=== PATIENT | female | born 1950 | race Caucasian/White ===

== ENCOUNTER → 2017-02-05 | Day surgery (SDC) | payer MEDICARE, BC, OTHER ==
[~2017-02-05] VITALS: Ht 158.8 cm; Wt 76.2 kg
[~2017-02-05] MED LIST: ALBUTEROL SULFATE 2.5 MG/0.5 ML INH NEB SOLN As Ordered ONE; ALBUTEROL SULFATE 2.5 MG/0.5 ML INH NEB SOLN INH ONE; ASPI81TA85 PO; CARV25TA PO; CARVedilol 12.5 MG TAB PO ONE; CLON-412 PO; COMBAER6 INH; EPINEPHrine 1MG/10ML SYRINGE 1.5IN As Ordered ONE; GLYCOPYRROLATE INJ 0.2 MG/ML 2 ML VIAL As Ordered ONE; LABETALOL HCL 100 MG/20 ML VIAL As Ordered ONE; LEVO112T2 PO; LIDOCAINE 2% INJ 100 MG/5 ML SDV (FOR ANES.) As Ordered ONE; LIDOCAINE VISCOUS 2% SOLN 15ML UDC As Ordered ONE; LR 1,000 ML IV SCH; METOCLOPRAMIDE INJ 10MG/2ML VIAL (J2765) As Ordered ONE; METOCLOPRAMIDE INJ 10MG/2ML VIAL (J2765) IV ONE; MIDAZOLAM INJ 2 MG/2 ML VIAL (J2250) As Ordered ONE; NEOSTIGMINE 1MG/ML 5 ML SYRINGE (J2710) As Ordered ONE; ONDANSETRON 4MG/2ML VIAL (J2405) As Ordered ONE; ONDANSETRON 4MG/2ML VIAL (J2405) IV PRN; PERCOCET 5MG/325MG TAB PO PRN; PHENYLephrine HCL 500 MCG/5 ML (100MCG/ML) SYRINGE (J2370) As Ordered ONE; PLAV75TA38 PO; PROPOFOL 200 MG/20 ML VIAL As Ordered ONE; ROCURONIUM BROMIDE 50 MG/5 ML VIAL As Ordered ONE; SCOPOLAMINE 1.5 MG TRANSDERMAL TOP ONE; SIMV10TA2 PO; VALS1TAB47 PO; VALSARTAN 80 MG TAB (DIOVAN) PO ONE; VITA100066 PO; XALA0.002 OU; cloNIDine 0.1 MG TAB PO ONE; dexameTHASONE 4 MG/ML 1ML VIAL (J1100) As Ordered ONE; ePHEDrine SULFATE 25 MG/5 ML(5MG/ML) SYRINGE As Ordered ONE; fentaNYL 100 MCG/2 ML INJECTION (J3010) As Ordered ONE; fentaNYL 100 MCG/2 ML INJECTION (J3010) IV PRN
--- NOTE | 2017-02-05 11:50 | REP ---
CHEST, ONE VIEW:HISTORY: Postop. Patchy density is present in the right upper lobe consistent with atelectasis or infiltrate. A diffuse increase in interstitial markings is present in the lungs. The heart is normal in size. The pulmonary vasculature is normal in appearance. There is no pneumothorax. IMPRESSION: 1. Right upper lobe atelectasis or infiltrate. 2. There is a diffuse increase in interstitial markings in the lungs. This may represent chronic interstitial fibrosis. Signed by Solomon Rodriguez MD 02/05/2017 11:57 A
--- NOTE | 2017-02-05 11:59 | RO ---
DATE OF PROCEDURE: 02/05/2017 PREOPERATIVE DIAGNOSIS: Abnormal chest CT, right upper lobe lesion, mediastinal adenopathy. POSTOPERATIVE DIAGNOSIS: Abnormal chest CT, right upper lobe lesion, mediastinal adenopathy. FINDINGS: Findings of a narrowed right middle lobe and splayed kaylie. PROCEDURE: Bronchoscopy with electromagnetic navigation and endobronchial ultrasound. PROCEDURALIST: Mitch Noel DO FREELANCE DIRECTOR: General Estimated blood loss: 20-30 mL. FLUIDS: None replaced. COMPLICATIONS: No complications. DRAINS: No drains. DESCRIPTION OF PROCEDURE: After informed consent was reviewed with the patient in preoperative area, she was brought back to OR number six. A time out was performed with two patient identifiers identifying correct site and correct procedure. After the patient was intubated, the case was handed over to me. I performed electromagnetic navigation bronchoscopy. I started with anesthetizing the area with Cetacaine spray. A time out was again performed identifying two patient identifiers identifying correct site and correct procedure. Bronchoscope was then introduced into the endotracheal tube. The trachea was midline. Kaylie was splayed. Right and left mainstem bronchus was normal except for excessive amounts of mucus and some white plaquing of the airway, especially on the right. RB 1-3 was normal without endobronchial lesions. Right mainstem bronchus was normal. There was narrowing of the right middle lobe to the point where I could only see a small sliver. I could not pass through this opening to see the medial and lateral segments. RB 6-10 was normal without endobronchial lesions. The left mainstem bronchus was normal without abnormalities, less mucus secretions than on the right. She had an anatomic variation. There was a left upper lobe apical segment, left upper apical posterior segment that were together, and then there was a separate left anterior segment of the left upper lobe and a separate area of lingula. Both superior and inferior segments. Left lower lobe was normal without endobronchial lesions in all airways. 5-10 was normal. After adequate inspection, the bronchoscope was moved back to the endotracheal tube. Automatic registration was performed with confirmation. The LG guide was then used to navigate into the right upper lobe posterior segment. Placement proximity was assured based on CT, location and fluoroscopy. The guide was 9 mm in front of the lesion. The LG guide was removed. FNA was obtained with Gen[employer]. I then performed transbronchial biopsies times eight. After this was performed a bronchial brush was used for cytology. I then replaced the LG guide, repositioned the guide to the lower edge of the lesion, and took FNA samples again with [facility] and transbronchial biopsies. This was followed by a bronchoalveolar lavage. After all this was obtained, the guide was removed. There was some hemorrhage from the posterior segment. I lavaged this area with saline. Then I applied one dose of epinephrine. After adequate hemostasis, all airways were suctioned and then the case was handed back over to anesthesia to change the endotracheal tube to 8.5 tube. After this was switched to an 8.5 endotracheal tube, the endobronchial ultrasound was used to view the subcarinal node. The subcarinal node was larger than 4 cm. A picture was taken. Multiple needle aspirations were obtained to form a cell block. On-site cytology suggested heme with a few spots of abnormal cells. After adequate sampling the needle was removed, endobronchial ultrasound was removed, the 1T180 bronchoscope was reinserted to ensure hemostasis and evacuation of all blood. There was good hemostasis. There is some swelling of the posterior segment of the right upper lobe with some clot formation. This was not disturbed at this point in time. There was no evidence of active hemorrhage. The patient is sent to recovery and will have a postprocedure chest x-ray at that point in time. At this point in time, there are no observed complications. DEBBIE
[2017-02-05] MEDS: LABETALOL HCL 100 MG/20 ML VIAL IV SCH ×3 (16:49→16:59)
[2017-02-05 17:41] VITALS: BP 205/93
[2017-02-05 20:45] VITALS: BP 220/100
== END | disposition home or self-care (01) ==
LOC: M SDC 08:59
PROVIDERS: ATTEND Internal Medicine Pulmonary Disease
DX: C34.91 Malignant neoplasm of unspecified part of right bronchus or lung (principal); J44.9 Chronic obstructive pulmonary disease, unspecified; I10 Essential (primary) hypertension; R06.02 Shortness of breath; E03.9 Hypothyroidism, unspecified; E78.00 Pure hypercholesterolemia, unspecified; M19.90 Unspecified osteoarthritis, unspecified site; F17.218 Nicotine dependence, cigarettes, with other nicotine-induced disorders; Z79.899 Other long term (current) drug therapy; Z79.02 Long term (current) use of antithrombotics/antiplatelets; Z79.82 Long term (current) use of aspirin; Z80.1 Family history of malignant neoplasm of trachea, bronchus and lung
CPT/HCPCS: 31624; 31627; 31628; 31653; 71010; 76000; 87070; 87102; 87116; 87205; 87206; 88104; 88108; 88172; 88173; 88305; 88313; J1100; J2250; J2370; J2405; J2710; J2765; J3010